=== PATIENT | female | born 1970 | race Caucasian/White ===

== ENCOUNTER 2017-11-18 19:34 | Emergency (ER) | payer OTHER ==
[2017-11-18 19:43] VITALS: BP 133/82; PULSE 85; TEMP 98; BMI 24.5
--- NOTE | 2017-11-18 19:43 | PDOC ---
History of Present Illness - General History Source: Patient, Old Records Exam Limitations: No Limitations - History of Present Illness Initial Comments: 11/18/17 19:55 The patient is a 46 year old female with no significant past medical history of who presents with left ankle pain for several for one month. The patient reports that one month ago she rolled her ankle this weekend. Her pain gradually subsided until this morning. She reports that she had a very active weekend and believes her pain may have subsequently returned. She describes her pain as shooting in sensation, concentrated to the lateral aspect of her left ankle and radiating to the inferior border of her left patella. She reports taking advil this morning before work with moderate relief of pain. <Wilner Hernandez - Last Filed: 11/18/17 20:40> <Alisha Morillo - Last Filed: 11/18/17 21:35> - General Chief Complaint: Injury Stated Complaint: LEFT ANKLE PAIN /INJURY ONE MONTH AGO Time Seen by Provider: 11/18/17 19:38 Past History <Wilner Hernandez - Last Filed: 11/18/17 20:40> - Past Medical History COPD: No Other medical history: SEASONAL ALLERGIES - Suicide/Smoking/Psychosocial Hx Smoking History: Never smoked Have you smoked in the past 12 months: No Information on smoking cessation initiated: No Hx Alcohol Use: Yes (SOCIAL) Drug/Substance Use Hx: No Substance Use Type: None <Alisha Morillo - Last Filed: 11/18/17 21:35> - Past Medical History Allergies/Adverse Reactions: Allergies Allergy/AdvReac Type Severity Reaction Status Date / Time Sulfa (Sulfonamide Allergy Verified 11/18/17 19:38 Antibiotics) Home Medications: Ambulatory Orders Cetirizine HCl [Zyrtec -] 10 mg PO DAILY 11/18/17 Review of Systems - Review of Systems Able to Perform ROS?: Yes Comments:: 11/18/17 19:55 GENERAL/CONSTITUTIONAL: No fever or chills. No weakness. HEAD, EYES, EARS, NOSE AND THROAT: No change in vision. No ear pain or discharge. No sore throat. CARDIOVASCULAR: No chest pain or shortness of breath. RESPIRATORY: No cough, wheezing, or hemoptysis. MUSCULOSKELETAL: (+) Left ankle and gregorio pain. No muscle swelling or pain. No neck or back pain. SKIN: No rash NEUROLOGIC: No headache, vertigo, loss of consciousness, or change in strength/ sensation. HEMATOLOGIC/LYMPHATIC: No anemia, easy bleeding, or history of blood clots. <Wilner Hernandez - Last Filed: 11/18/17 20:40> *Physical Exam - Vital Signs Last Vital Signs Temp Pulse Resp BP Pulse Ox 98 F 85 16 133/82 100 11/18/17 19:40 11/18/17 19:40 11/18/17 19:40 11/18/17 19:40 11/18/17 19:40 <ValcristiWilner - Last Filed: 11/18/17 20:40> - Vital Signs Last Vital Signs Temp Pulse Resp BP Pulse Ox 98 F 85 16 133/82 100 11/18/17 19:40 11/18/17 19:40 11/18/17 19:40 11/18/17 19:40 11/18/17 19:40 - Physical Exam Comments: GENERAL: Awake, alert, and fully oriented, in no acute distress HEAD: No signs of trauma EYES: PERRLA, EOMI, sclera anicteric, conjunctiva clear EXTREMITIES: L ankle with 1+ pitting edema to the lateral malleolus, + tenderness to the tip of the lateral malleolus. +Tenderness to proximal L fibula. No deformity, no erythema. No calf tenderness. Remainder of extremities with normal range of motion, no edema. No clubbing or cyanosis. No cords, erythema, or tenderness NEUROLOGICAL: Cranial nerves II through XII grossly intact. Normal speech, normal gait SKIN: Warm, Dry, normal turgor, no rashes or lesions noted. <Alisha Morillo - Last Filed: 11/18/17 21:35> Procedures - Splinting Pre-Made Type: aircast <Alisha Morillo - Last Filed: 11/18/17 21:35> ED Treatment Course - RADIOLOGY Radiograph Interpretation: 11/18/17 20:40 Felisha Gerardo Name: [facility] Phys: Alisha Morillo MD : 1970 Age: 46 Sex: F [facility] Acct: [id number] Loc: [address] Exam Date: 11/18/17 Status: REG [place] [id number] Unit Number: [id number] EXAM#: TYPE/EXAM: RESULT: [id number] RAD/ANKLE-LEFT [id number] RAD/LEG TIB/FIB-LEFT HISTORY PROVIDED: Ankle injury. AP, oblique and lateral projections of the left tib-fib and ankle reveals a nondisplaced fracture through the distal fibula. No additional fractures, ankle dislocation or acute abnormalities are identified. IMPRESSION: Fracture distal fibula Reported By: Cassius Saha MD 11/18/172037 Alisha Morillo Technologist: Christal Preciado Transcribed Date/Time: 11/18/172037 Form Tamper Operator: Cassius Saha Printed Date/Time: By: Signed by: Cassius Saha Signed on: 18-Nov-2017 20:39 Har[place] Name: [facility] RAD[facility]OLOG[facility] Phys: Alisha Morillo MD : 1970 Age: 46 Sex: F [facility] Acct: [id number] Loc: [address] Exam Date: 11/18/17 Status: REG [place] [id number] Unit Number: [id number] EXAM#: TYPE/EXAM: RESULT: RAD/ANKLE-LEFT RAD/LEG TIB/FIB-LEFT HISTORY PROVIDED: Ankle injury. AP, oblique and lateral projections of the left tib-fib and ankle reveals a nondisplaced fracture through the distal fibula. No additional fractures, ankle dislocation or acute abnormalities are identified. IMPRESSION: Fracture distal fibula Reported By: Cassius Saha MD 11/18/172037 Alisha Morillo Technologist: Christal Preciado Transcribed Date/Time: 11/18/172037 Form Tamper Operator: Cassius Saha Printed Date/Time: By: Signed by: Cassius Saha Signed on: 18-Nov-2017 20:39 <Wilner Hernandez - Last Filed: 11/18/17 20:40> Medical Decision Making - Medical Decision Making Chronicity of symptoms would imply the injury occurred a month ago, however, the fracture appears acute. This is a non-weight bearing bone, so it should have healed. Unclear if this is a re-injury. Aircast placed. Crutch trained. F/ u with ortho. <Alisha Morillo - Last Filed: 11/18/17 21:35> *DC/Admit/Observation/Transfer - Attestations Scribe Attestion: 11/18/17 19:55 Documentation prepared by Wilner Hernandez, acting as center medical specialist for Alisha Morillo MD. <Wilner Hernandez - Last Filed: 11/18/17 20:40> - Discharge Dispostion Decision to Admit order: No <Alisha Morillo - Last Filed: 11/18/17 21:35> Diagnosis at time of Disposition: Ankle sprain Qualifiers: Encounter type: initial encounter Involved ligament of ankle: unspecified ligament Laterality: left Qualified Code(s): S93.402A - Sprain of unspecified ligament of left ankle, initial encounter - Discharge Dispostion Disposition: HOME Condition at time of disposition: Stable - Referrals Referrals: Oc Baer MD [Staff Physician] - - Patient Instructions Printed Discharge Instructions: DI for Ankle Fracture, Smoking Cessation
[2017-11-18] MEDS ORDERED: IBUPROFEN 600 MG TABLET (FP) PO ONE ×2 (19:52→19:57)
== END 2017-11-18 20:45 | disposition home or self-care (01) ==
LOC: FER 19:34
PROC: 2W3RX1Z Immobilization of Left Lower Leg using Splint (ICD-10-PCS; principal; 2017-11-18)
DX: S93.402A Sprain of unspecified ligament of left ankle, initial encounter (principal); X58.XXXA Exposure to other specified factors, initial encounter; Y93.89 Activity, other specified; Y92.9 Unspecified place or not applicable; J30.2 Other seasonal allergic rhinitis
CPT/HCPCS: 73590-TC-LT-FY; 73610-TC-LT-FY; 99281-25